=== PATIENT | male | born 1980 | race Caucasian/White ===

== ENCOUNTER 2024-06-02 10:17 | Emergency (ER) | payer OTHER, SELFPAY ==
[2024-06-02 10:28] VITALS: BP 133/85
--- NOTE | 2024-06-02 11:40 | ED.GENMED ---
History of Present Illness
<Lindsay Mcpherson MD - Last Filed: 06/02/24 11:42>
General
Chief Complaint: Male Genito-Urinary Symptoms
Time Seen by Provider: 06/02/24 10:34
<Kelli Villaseñor PA-C - Last Filed: 06/03/24 15:16>
General
Source: patient
Exam Limitations: none
Nursing documentation reviewed up to this point in time: agreed with
History of Present Illness
History of Present Illness:
Patient is a 44-year-old male with no significant medical history presenting to the emergency department for syphilis treatment. Patient states that he follows with a STI testing facility and undergoes routine STI/STD testing every 3 months.
Patient is currently on PrEP. Patient states he was tested several weeks ago and received a call yesterday that he test for syphilis came back positive. Patient denies any prior history of syphilis. Patient denies any known genital lesions,
discomfort, dysuria, rash, fevers, or other known symptoms.
Patient was negative for syphilis at his last test 3 months ago. Patient has a questionable penicillin allergy for when he was a child. In addition�patient has a recent presumed allergy to doxycycline due to drug reaction he received about a year
ago. Given possible penicillin allergy�patient was referred to the emergency department to receive IM penicillin and be monitored in case of possible reaction.
Review of Systems
<Kelli Villaseñor PA-C - Last Filed: 06/03/24 15:16>
Review of Systems
Allergies reviewed?: Yes
All Other Systems: ROS reviewed and negative except as documented in HPI and ROS
Phy Exam
<Kelli Villaseñor PA-C - Last Filed: 06/03/24 15:16>
Physical Exam
Physical Exam:
Vitals: Patient's vital signs are stable. Afebrile
General: Patient is well appearing, no acute distress. Nontoxic-appearing
Skin: Warm and dry, no rashes or lesions
Head: Normocephalic, atraumatic
Eyes: Sclera nonicteric. EOMs intact. No nystagmus.
Throat: Protecting airway
Neck: Normal ROM, no cervical spine tenderness, no meningismus
Cardiac: Regular rate and rhythm, no murmurs.
Pulm: Normal respiratory effort, no wheezes, rales, rhonchi heard on exam.
Abdomen: Abdomen soft. No abdominal tenderness.
: Normal exam with no lesions, ulcers, or inguinal lymphadenopathy.
Extremities: No evidence of cyanosis or edema
Neuro: AAOx3. CN II-XII intact. No focal neurologic deficits. Sensation fully intact. Strength 5 out of 5 in upper and lower extremities. Normal gait.
Psychiatric: Normal affect.
Course
<Lnidsay Mcpherson MD - Last Filed: 06/02/24 11:42>
Orders/Labs/Results
Orders:
Orders
06/02/24 11:49
Penicillin G Benzathine [Bicillin LA] 2,400,000 units IM NOW STA
Vital Signs
Initial and Last Documented VS:
Initial Vital Signs
Temp Pulse Resp BP Pulse Ox
99.1 F 90 20 133/85 97
06/02/24 10:28 06/02/24 10:28 06/02/24 10:28 06/02/24 10:28 06/02/24 10:28
Last Documented Vital Signs
Temp Pulse Resp BP Pulse Ox
99.1 F 86 16 124/75 99
06/02/24 10:28 06/02/24 12:00 06/02/24 12:00 06/02/24 12:00 06/02/24 12:00
<Kelli Villaseñor PA-C - Last Filed: 06/03/24 15:16>
Orders/Labs/Results
Orders:
Orders
06/02/24 11:49
Penicillin G Benzathine [Bicillin LA] 2,400,000 units IM NOW STA
Vital Signs
Initial and Last Documented VS:
Initial Vital Signs
Temp Pulse Resp BP Pulse Ox
99.1 F 90 20 133/85 97
06/02/24 10:28 06/02/24 10:28 06/02/24 10:28 06/02/24 10:28 06/02/24 10:28
Last Documented Vital Signs
Temp Pulse Resp BP Pulse Ox
99.1 F 86 16 124/75 99
06/02/24 10:28 06/02/24 12:00 06/02/24 12:00 06/02/24 12:00 06/02/24 12:00
<Kelli Villaseñor PA-C - Last Filed: 06/03/24 15:16>
MDM/Problems Addressed
Differential Diagnosis Includes:
Not limited to: Syphilis
MDM/Problems Addressed:
44-year-old male with no significant past medical history presents due to positive syphilis test found on routine STD screening. Patient presents for treatment. Patient has a recent allergy to doxycycline and a very remote allergy to penicillin as a
child. No known anaphylactic reaction to penicillin in the past. Patients vital signs are stable. Physical exam as above. Patient very well appearing in no apparent distress. No focal neurologic deficits noted. Sensation is fully intact. No skin
rash. Normal exam without any lesions, ulcerations, or inguinal lymphadenopathy. Abdomen nontender. Risk vs benefit of PCN considered and discussed with patient. Patient will be given IM penicillin and will be monitored closely in the emergency
department.
Patient was given IM penicillin and monitored in the emergency department for over an hour without any signs of an allergic reaction. No notable skin rash, oral swelling, or tongue swelling. No shortness of breath or difficulty breathing. Patient
stable for discharge. Lengthy discussion regarding return precautions. He will follow up with primary care.
Chronic conditions affecting care:
N/A
Acute Exacerbation and/or Progression of Chronic Illness:
N/A
<Kelli Villaseñor PA-C - Last Filed: 06/03/24 15:16>
*Pulse Oximetry
Patient hypoxic: no
*EKG
Interpreted by ED Provider?: NA
*Grinder Lap Interpretation
Rate: Grinder Lap- N/A
*Critical Care Note
Total Time (30-74mins, 75-104mins- exclusive of procedures): Not Applicable
ED Attending Note
<Lindsay Mcpherson MD - Last Filed: 06/02/24 11:42>
ED Attending Note
Patient seen and examined by attending physician: Yes
I performed the substantive portion of visit, reviewed & personally made and approve the management plan that is documented in note by myself or ED.: Yes
ED Attending Note:
Pt appears well and stable, patient is breathing clearly. Abdomen is soft and nontender. Patient appears nontoxic
-
Portions of this chart may have been created with voice recognition software.� Occasional wrong word or��sound alike� substitutions may have occurred due to the inherent limitations of voice recognition software.
Discharge Plan
Departure
Patient Disposition: Home (Routine Discharge)
Date of Disposition: 06/02/24
Time of Disposition: 13:10
Patient with high blood pressure during this ER visit?: No
Condition: Good
Covid-19: Not Applicable
Discharge Problem:
Syphilis
Instructions: Syphilis (DC), Sexually transmitted infections
Referrals:
UNKNOWN - PT DOES,NOT KNOW [Family Provider] -
Activity Restrictions/Additional Instructions:
RETURN TO THE EMERGENCY DEPARTMENT WITH ANY FEVERS, CHILLS, SWELLING OF TONGUE, MOUTH, LIPS, NEW RASH, SHORTNESS OF BREATH/DIFFICULTY BREATHING, SEVERE HEADACHE, WORSENING IN CURRENT SYMPTOMS, OR ANY OTHER CONCERNS
-As discussed�you should continue to follow-up with your testing facility for routine STI testing. Continue to take all medications as prescribed.
Monitor your symptoms closely and return to the emergency department with any acute worsening/new symptoms.
Interventions
Interventions:
*Risk Screen - Suicide Last Done: 06/02/24 12:00
*General Assessment Last Done: 06/02/24 12:00
*Neglect/Abuse Screening Last Done: 06/02/24 12:00
*Nursing Disposition Last Done: 06/02/24 13:21
ED-Male Genitourinary Assessment Last Done: 06/02/24 12:00
Discharge Date and Time
Discharge Date/Time: 06/02/24 13:22
Print Language: THAI
[2024-06-02 12:00] VITALS: BP 124/75
[2024-06-02] MEDS: BICILLIN LA 2400000 UNITS IM (12:09)
== END 2024-06-02 13:22 | disposition home or self-care (01) ==
LOC: EMR 10:17
PROVIDERS: EMERGENCY PHYSICIAN Emergency Medicine
DX: A53.9 Syphilis, unspecified (principal)
CPT/HCPCS: 99282; 96372; J0561